=== PATIENT | female | born 1975 | race Two or more races ===

== ENCOUNTER 2023-06-16 22:28 | Emergency (ER) | payer MEDICAID, OTHER ==
[~2023-06-16] VITALS: Ht 154.9 cm; Wt 69.0 kg
[2023-06-16 22:28] VITALS: BP 148/80; PULSE 109; RESP 18; O2SAT 98
[2023-06-17] MEDS ORDERED: DexAMETHasone SOD PHOS 10MG/1ML VIAL INJ IM ONE (00:45)
== END 2023-06-17 04:12 | disposition left against medical advice (07) ==
LOC: ER 22:31
DX: R05.9 Cough, unspecified (principal); Z53.21 Procedure and treatment not carried out due to patient leaving prior to being seen by health care provider
CPT/HCPCS: 71045; J1100

== ENCOUNTER 2023-10-07 23:17 | Emergency (ER) | payer MEDICAID ==
[~2023-10-07] VITALS: Ht 154.9 cm; Wt 75.9 kg
[2023-10-07] MEDS ORDERED: diphenhdrAMINE HCL 25 MG CAP PO ONE (23:30)
[2023-10-08] MEDS ORDERED: DIPH25CA66 PO (00:28)
[2023-10-08] MEDS ORDERED: FAMO20TA10 PO (00:28)
[2023-10-08] MEDS ORDERED: PRED20TA2 PO (00:28)
[2023-10-08] MEDS ORDERED: FAMOTIDINE 20 MG TAB PO ONE (00:30)
[2023-10-08] MEDS ORDERED: methylPREDNISolone SOD SUCC 125 MG/2 ML VL IM ONE (00:30)
[2023-10-08] MEDS ORDERED: diphenhdrAMINE HCL 50 MG/1 ML VL IM ONE (00:30)
[2023-10-08 03:38] VITALS: BP 153/98; PULSE 89; TEMP 98.7
[2023-10-08 04:00] VITALS: RESP 16; O2SAT 98
== END 2023-10-08 05:28 | disposition home or self-care (01) ==
LOC: ER 23:17
DX: T78.40XA Allergy, unspecified, initial encounter (principal); Z79.899 Other long term (current) drug therapy; Y92.89 Other specified places as the place of occurrence of the external cause
CPT/HCPCS: 96372; 99284; J1200; J2930